=== PATIENT | male | born 1985 | race Caucasian/White ===

== ENCOUNTER 2018-07-17 11:08 | Day surgery (SDC) | payer OTHER ==
[~2018-07-17] VITALS: Ht 185.4 cm; Wt 78.8 kg
[~2018-07-17 11:08] MED LIST: ALBU8.5H8 INH; ALPR1TAB2 PO; CBD oil PO; FOLI1TAB47 PO; MOME13HF2 INH
[2018-07-17] MEDS ORDERED: LACTATED RINGERS 1,000 ML IV SCH (11:34)
[2018-07-17 11:38] VITALS: BP 115/76
[2018-07-17] MEDS ORDERED: MIDAZOLAM 1 MG/ML, 2ML ONE (13:22)
[2018-07-17] MEDS ORDERED: FENTANYL PF 100 MCG/2ML ONE (13:22)
[2018-07-17] MEDS ORDERED: PROPOFOL 10 MG/ML, 50ML ONE (13:46)
[2018-07-17] MEDS ORDERED: ONDANSETRON 2MG/ML, 2ML ONE (13:46)
[2018-07-17] MEDS ORDERED: HYDROmorphone 2 MG/ML, 1ML IVPush PRN (14:30)
[2018-07-17] MEDS ORDERED: ALBUTEROL SULFATE 2.5 MG/3 ML NPPB PRN (14:30)
[2018-07-17] MEDS ORDERED: FENTANYL PF 100 MCG/2ML IV PRN (14:30)
[2018-07-17] MEDS ORDERED: MEPERIDINE/PF 25MG/0.5ML IVPush PRN (14:30)
[2018-07-17] MEDS ORDERED: PROMETHAZINE 25 MG/ML, 1ML IV PRN (14:30)
[2018-07-17] MEDS ORDERED: OXYcodone 5 MG/5 ML ORAL.SOL UDC PO PRN (14:30)
[2018-07-17] MEDS ORDERED: HALOPERIDOL 5 MG/ML IV PRN (14:30)
[2018-07-17] MEDS ORDERED: ACETAMINOPHEN 325 MG TABLET PO PRN (14:30)
[2018-07-17] MEDS ORDERED: LORazepam 2 MG/ML, 1ML IVPush PRN (14:30)
== END 2018-07-17 15:50 | disposition home or self-care (01) ==
LOC: OUT 11:08
PROVIDERS: ATTEND Internal Medicine Gastroenterology
DX: K80.20 Calculus of gallbladder without cholecystitis without obstruction (principal); K31.89 Other diseases of stomach and duodenum; R59.1 Generalized enlarged lymph nodes; F41.9 Anxiety disorder, unspecified; E78.00 Pure hypercholesterolemia, unspecified; J45.909 Unspecified asthma, uncomplicated; Z88.1 Allergy status to other antibiotic agents; Z72.89 Other problems related to lifestyle
CPT/HCPCS: 43242; 88172; 88173; 88305; J2250; J2405; J2704; J3010; J7120